=== PATIENT | male | born 1970 | race Caucasian/White ===

== ENCOUNTER 2017-04-05 01:38 | Emergency (ER) | payer MEDICARE ==
[~2017-04-05] VITALS: Ht 172.7 cm; Wt 81.6 kg
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
--- NOTE | 2017-04-05 03:16 | NUR ---
PATIENT IS RESTING IN ER BED, NAD NOTED, SKIN WARM AND DRY. WILL CONTINUE TO MONITOR
[2017-04-05] MEDS ORDERED: ACETAMINOPHEN 325 MG TABLET PO ONE (04:30)
[2017-04-05] MEDS ORDERED: ACETAMINOPHEN ES 500 MG TABLET ONE (04:55)
--- NOTE | 2017-04-05 05:07 | NUR ---
pt ok to discharge per dr wick. Patient discharged to home in stable condition. Written and verbal after care instructions given. Patient verbalizes understanding of instruction.Patient is awake and alert to self, day, and place.
[2017-04-05 05:13] VITALS: BP 132/71
== END 2017-04-05 05:14 | disposition home or self-care (01) ==
LOC: ER 01:39
DX: M25.551 Pain in right hip (principal); G89.29 Other chronic pain
CPT/HCPCS: 73502; 99284; A4606; Z7610